=== PATIENT | male | born 1985 | race Caucasian/White ===

== ENCOUNTER 2024-02-19 21:39 | Emergency (ER) | payer MEDICAID ==
[~2024-02-19] VITALS: Ht 162.6 cm; Wt 71.0 kg
[2024-02-19 21:43] VITALS: BP 111/67; PULSE 110; RESP 16; TEMP 99; O2SAT 98
[2024-02-19 23:09] LABS: CHLORIDE 105 mEq/L (98-107); POTASSIUM 4.5 mEq/L (3.5-5.1); SODIUM 138 mEq/L (136-145)
[2024-02-19 23:10] LABS: CARBON DIOXIDE 27 mEq/L (21-32)
[2024-02-19 23:11] LABS: CALCIUM 9.7 mg/dL (8.7-10.4)
[2024-02-19 23:15] LABS: CREATININE 1.2 mg/dL (0.6-1.3)
[2024-02-19 23:16] LABS: GLUCOSE 99 mg/dL (70-105); UREA NITROGEN BLOOD 15 mg/dL (9-23)
[2024-02-19 23:46] LABS: TROPONIN I HIGH SENSITIVITY < 4 ng/L (3.0-53)
[2024-02-19 23:46] LABS: *AMPHETAMINES SCREEN URINE PRESUMPTIVE POSITIVE (NEGATIVE); *BARBITURATES SCREEN URINE NEGATIVE (NEGATIVE); *BENZODIAZEPINES SCREEN URINE NEGATIVE (NEGATIVE); *COCAINE SCREEN URINE NEGATIVE (NEGATIVE); CANNABINOID URINE SCREEN NEGATIVE (NEGATIVE); ECSTASY MDMA SCREEN URINE CONF.TEST INDICATED (NEGATIVE); METHADONE URINE SCREEN NEGATIVE (NEGATIVE); OPIATES URINE SCREEN NEGATIVE (NEGATIVE); PHENCYCLIDINE URINE SCREEN NEGATIVE (NEGATIVE)
== END 2024-02-20 00:34 | disposition home or self-care (01) ==
LOC: ER 21:39
DX: F19.10 Other psychoactive substance abuse, uncomplicated (principal); F41.9 Anxiety disorder, unspecified; R05.9 Cough, unspecified; R06.02 Shortness of breath
CPT/HCPCS: 36415; 71045; 80048; 80305; 84484; 93005; 99285